=== PATIENT | male | born 1955 | race Caucasian/White ===

== ENCOUNTER 2017-07-25 19:00 | Emergency (ER) | payer MEDICAID ==
[~2017-07-25] VITALS: Ht 170.2 cm; Wt 135.6 kg
[2017-07-25 19:07] VITALS: Ht 170.2 cm; Wt 135.6 kg
[2017-07-25 20:04] VITALS: BP 120/67
== END 2017-07-25 20:04 | disposition home or self-care (01) ==
LOC: ED 19:00
DX: S61.432A Puncture wound without foreign body of left hand, initial encounter (principal); I10 Essential (primary) hypertension; X58.XXXA Exposure to other specified factors, initial encounter; Y93.89 Activity, other specified; Y92.89 Other specified places as the place of occurrence of the external cause; Y99.8 Other external cause status